=== PATIENT | female | born 1980 | race Two or more races ===

== ENCOUNTER 2021-05-11 13:32 | Outpatient (REF) | payer OTHER, SELFPAY ==
[2021-05-11 14:03] LABS: COVID-19 Test Negative (Negative)
== END 2021-05-11 13:33 | disposition home or self-care (01) ==
LOC: HO.LAB 13:32
PROVIDERS: Visit Provider Internal Medicine
DX: Z20.822 Contact with and (suspected) exposure to COVID-19 (principal)
CPT/HCPCS: 87635; C9803